=== PATIENT | female | born 2005 | race Caucasian/White ===

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

== ENCOUNTER 2024-02-27 00:37 | Emergency (ER) | payer OTHER, SELFPAY ==
[2024-02-27 00:39] VITALS: BP 104/68; PULSE 67; RESP 16; TEMP 36.7; O2SAT 100
--- NOTE | 2024-02-27 01:34 | PC.NURSE ---
Called pt in waiting room, pt not acknowledging this bond writer, Security then called pts name and patient states she isnt going to be seen. Registration made aware.
== END 2024-02-27 01:37 | disposition left against medical advice (07) ==
PROVIDERS: Emergency Provider Emergency Medicine
DX: R10.30 Lower abdominal pain, unspecified (principal); Z53.21 Procedure and treatment not carried out due to patient leaving prior to being seen by health care provider
CPT/HCPCS: 99281

== ENCOUNTER 2024-03-17 07:28 | Emergency (ER) | payer OTHER, SELFPAY ==
[2024-03-17 07:42] VITALS: BP 105/57; PULSE 60; RESP 16; TEMP 36.5; O2SAT 100; BMI 21.1
--- NOTE | 2024-03-17 11:41 | PC.NURSE ---
NA to name at 11:40.
--- OUTSIDE RECORDS SUMMARY | 2024-03-17 14:46 | XMS_ITS | Clinical Summary ---
Author Organization [facility] it Address [address] [place] [address] Care Team Providers Care Sewing Demonstrator Name Role Phone Tabitha Topete MD Primary Care Provider [phone] Allergies No known active allergies Medications Medication Sig Dispensed Refills Start Date End Date Status nystatin-triamcinolon e (MYCOLOG II) ointment Apply to affected area BID for up to 2 weeks 04/22/2023 Active Active Problems Problem Noted Date Diagnosed Date Exercise-induced asthma 02/12/2019 Dysmenorrhea 02/12/2019 Nonintractable headache 02/12/2019 Allergic rhinitis 01/29/2019 Overview (02/09/2024): 11/23/14 - loratadine Asthma 01/29/2019 Overview (02/09/2024): Diagnosed 12/21/2014. ProAir, Prednisone. Uses albuterol mostly when sick Learning problem 01/29/2019 Overview (02/09/2024): 10/05/15 OV note states - Language. Has IEP. No additional details available in transfer records Immunizations Name Administration Dates Next Due DTaP (Infanrix) 6wks to less than 7yo 10/10/2009 ,03/04/2006 [id number]-HBM-EFA (Pentacel) 2mo to less than 5yo 03/04/2006,04/08/2005,02/12/2005,12/13 PQyW-BnoO-SOU (Pediarix) 6 w ks to less than 7yo 04/08/2005,02/12/2005,2004 HPV 9-valent (Gardisil) 9yo to less than 46yo 02/12/2019,10/05/2015 Hepatitis B Pediatric (Enger ix B; Recombivax HB) to less than 20 yo 2004 IPV Inactivated polio (Ipol) 6wks and older 10/10/2009 Influenza trivalent, 0.5mL, preservative free (Fluarix; FluLaval; Fluzone) ages 6mo and older (Afluria) 3 years and older 02/12/2019 Influenza trivalent, with pr eservative (Fluzone; Afluria) 6mo and older 10/10/2009,03/04/2006,04/08/2005 MMR, measles mumps and rubel la Live (Priorix; M-M-R II) 12mo and older 01/10/2009 MMRV, measles mumps rubella and varicella live (Proquad) 4yo to less than 7yo 03/04/2006 Meningococcal MCV4P 10/05/2015 Pneumococcal Conjugate Vacci ne, 7 Valent 03/04/2006,04/08/2005,02/12/2005,12/13 Tdap Tetanus diptheria acell ular pertussis (Boostrix; Adacel) 7yo and older 10/05/2015 Varicella live (Varivax) 12m o and older 01/10/2009 Surgical History Surgery Date Site/Laterality Comments OTHER SURGICAL HISTORY PROCEDURE: DENIES PREVIOUS SURGERY Medical History Medical History Date Comments Allergic rhinitis 01/29/2019 DX:Allergic rh initis; COMMENT: 11/23/14 - loratadine Asthma 01/29/2019 DX:Asthma; COMME NT: Diagnosed 12/21/2014. ProAir, Prednisone. Uses albuterol mostly when sick Learning problem 01/29/2019 DX:Learning pro blem; COMMENT: 10/05/15 OV note states - Language. Has IEP. No additional details available in transfer records Family History Medical History Relation Name Comments Other: History of Lyme Disease Brother Breast cancer Mother's side Mat Great GMA Lymphoma Paternal Grandmother Relation Name Status Comments Brother Father Alive Mother Alive Mother's side Alive Paternal Grandmother Social History Tobacco Use Types Packs/Day Years Used Date Smoking Tobacco: Some Days Smokeless Tobacco: Never Alcohol Use Standard Drinks/Week Comments Not Currently 0 (1 standard drink = 0.6 oz pur e alcohol) Sex and Gender Information Value Date Recorded Sex Assigned at Not on file Gender Identity Not on file Sexual Orientation Not on file Obstetrics History Growth Chart Information Age Height Weight Bxwfmv-cnr-wqft th Percentile BMI Percentile Head Circum Head Circum Percentile Date 17 years 162.6 cm (5' 4 ) 54.2 kg (119 lb 6.4 oz) 37.52%* 2023 16 years 162.6 cm (5' 4 ) 49.9 kg (110 lb) 18.11%* 2022 16 years 49.1 kg (108 lb 3.2 oz) 2022 15 years 162 cm (5' 3.78 ) 55.6 kg (122 lb 9.6 oz) 54.71%* 2021 15 years 57.2 kg (126 lb) 2021 13 years 162 cm (5' 3.78 ) 57.1 kg (125 lb 12.8 oz) 73.75%* 2018 * [facility][NOTE 3] (Girls, 2-20 Years) Last Filed Vital Signs Vital Sign Reading Time Taken Comments Blood Pressure 123/78 04/17/2023 4:22 PM EST Pulse 78 08/22/2022 1:16 PM EDT Temperature - - Respiratory Rate - - Oxygen Saturation - - Inhaled Oxygen Concentration - - Weight 54.2 kg (119 lb 6.4 oz) 04/17/2023 4:22 P M EST Height 162.6 cm (5' 4 ) 04/17/2023 4:22 PM EST Body Mass Index 20.49 04/17/2023 4:22 PM EST Body Mass Index Percentile 37.52% 04/17/2023 4:2 2 PM EST Growth Chart: [facility][NOTE 3] (Girls, 2- 20 Years) Plan of Treatment Upcoming Encounters Date Type Department Care Team (Late st Contact Info) Description 07/27/2024 4:00 PM EDT Office Visit Adult Medicine [address] [phone] Tabitha Toepte MD [address] [place] [id number] Health Maintenance Due Date Last Done Comments Pneumococcal Vaccine: Pediatrics (0 to 5 Years) and At-Risk Patients (6 to 64 Years) (1 of 1 - PPSV23 or PCV20) 2010 03/04/2006, 04/08/2005, 02/12/2005, Additional history exists Annual Well Child Visit (3-21 years old) 01/22/2022 02/12/2019 Depression Screening 01/22/2022 HIV Screening 01/22/2022 Hepatitis C Screening 01/22/2022 Social Influencers of Health Screening 01/22/2022 COVID-19 Vaccine ( season) 2023 Influenza Vaccine (#1) 2023 , 10/10/2009, 03/04/2006, Additional history exists Gonorrhea/Chlamydia Screening 04/17/2024 04/17/2023 DTaP,Tdap,and Td Vaccines (7 - Td or Tdap) 10/04/2025 10/05/2015, 10/10/2009, 03/04/2006, Additional history exists Hepatitis B Vaccines Completed 04/08/2005, 02/12/2005, 2004, Additional history exists HIB Vaccines Completed 03/04/2006, 03/27, 02/12/2005, Additional history exists MMR Vaccines Completed 01/10/2009, 03/04/2006 Varicella Vaccines Completed 01/10/2009, 03/04/2006 IPV Vaccines Completed 10/10/2009, 10/2006, 04/08/2005, Additional history exists Meningococcal ACWY Vaccine Aged Out 10/05/2015 N o longer eligible based on patient's age to complete this topic HPV Vaccines Completed 02/12/2019, 10/05/2015 Hepatitis A Vaccines Aged Out No long er eligible based on patient's age to complete this topic RSV Immunization Patients Under 20 months Aged Out No longer eligible based on patient's age to complete this topic Procedures Procedure Name Priority Date/Time Associated Diagnosis Comments GONORRHEA/CHLAMYDIA SCRREENING Routine 04/17/2023 from Last 3 Months or Most Recently Relevant to Health Maintenance Results * Gonorrhea/Chlamydia Screening (04/17/2023) HM Gonorrhea/Chla mydia Screening abstracted Historical Provider MD EPIFANIO Hinson from Last 3 Months or Most Recently Relevant to Health Maintenance Care Teams Sewing Demonstrator Relationship Specialty Start Date End Date Tabitha Topete MD PCP - General 04/17/23
== END 2024-03-17 14:34 | disposition left against medical advice (07) ==
PROVIDERS: Emergency Provider Emergency Medicine
DX: R10.2 Pelvic and perineal pain (principal)
CPT/HCPCS: 99281

== ENCOUNTER 2024-03-18 23:29 | Emergency (ER) | payer OTHER, SELFPAY ==
[2024-03-18 23:37] VITALS: BP 112/55; PULSE 70; RESP 16; TEMP 36.8; O2SAT 97; BMI 21.4
[2024-03-19 00:29] LABS: Appearance Urine Cloudy; Color Urine Dark Yellow; Glucose Urine UA Negative (Negative); Leukocyte Esterase Urine Moderate (2+) (Negative); Nitrite Urine Negative (Negative); Specific Gravity - Urine >= 1.030 (1.005-1.025); UMIC TRIGGER UACC YES; Urine Blood Trace (Negative); Urine Ketones Trace mg/dL (Negative); Urine Protein 30 (1+) mg/dL (Neg-Trace)
[2024-03-19 00:34] LABS: Bacteria Urine Trace (None Seen); UACC Culture Trigger YES; WBC Urine >50 /HPF (0-5)
--- NOTE | 2024-03-19 01:52 | ED_ITS ---
HPI - Female Genitourinary General Chief complaint: Urogenital-Female Stated complaint: Vaginal pain Time Seen by Provider: 03/19/24 01:52 History of Present Illness ED Provider: Miguel AMIN Narrative: The patient is a 18-year-old female. She is . She believes she is about 4 months . Comes to the emergency room because she has had urinary symptoms for about a week. These symptoms include dysuria, urgency and frequency. Also for the last couple of days she has had a sense of some additional vaginal discomfort. Last sexual intercourse was 1-2 weeks ago with a new partner. No flank pain. No nausea or vomiting. No fevers. The patient says that she does not plan to keep the . She [facility]. The patient was seen in the emergency room here on December 19 for a variety of symptoms. At that time she had an ultrasound that showed an intrauterine at about 7 weeks and 1 day. Based on that calculation the patient is approximately 20 weeks currently. Related Data Home Medications ?Medication ?Instructions ?Recorded ?Confirmed methadone 10 mg/mL oral 65 mg PO DAILY 09/24/23 09/24/23 concentrate (Methadone Intensol) Previous Rx's ?Medication ?Instructions ?Recorded polyethylene glycol 3350 17 gram 17 g PO BID #30 ea 01/13/21 oral powder packet (Miralax) docusate sodium 100 mg capsule 100 mg PO BID PRN constipation #30 12/15/21 (Colace) caps famotidine 20 mg tablet (Pepcid) 20 mg PO DAILY PRN abdominal 12/15/21 discomfort #30 tabs ondansetron 4 mg disintegrating 4 mg PO Q8H PRN nausea and 12/15/21 tablet vomiting #20 tabs sennosides 8.6 mg tablet (senna) 8.6 mg PO BEDTIME PRN constipation 12/15/21 #30 tabs ondansetron 4 mg disintegrating 4 mg PO DAILY PRN nausea and 08/12/23 tablet vomiting 5 days #7 tabs ondansetron 4 mg disintegrating 4 mg PO Q8H PRN nausea and 09/24/23 tablet vomiting #6 tabs doxylamine 10 mg-pyridoxine (vit 1 tab PO BID PRN nausea and 12/08/23 B6) 10 mg tablet,delayed release vomiting #30 tabs (Diclegis) clotrimazole 2 % vaginal cream 1 appful vaginal BEDTIME 3 days 12/20/23 #21 grams ondansetron 4 mg disintegrating 4 mg PO Q6H PRN nausea and 12/20/23 tablet vomiting #15 tabs metronidazole 500 mg tablet 500 mg PO BID 7 days #14 tabs 12/24/23 azithromycin 250 mg tablet 250 mg PO DAILY 7 days #7 tabs 03/19/24 cefpodoxime 200 mg tablet 200 mg PO BID #12 tabs 03/19/24 metronidazole 500 mg tablet 500 mg PO BID #14 tabs 03/19/24 Allergies Allergy/AdvReac Type Severity Reaction Status Date / Time No Known Allergies Allergy Verified 03/18/24 23:40 [facility] Past Medical History Medical History Anxiety Constipation Social History Social History Unable to assess alcohol history related to: Unable to respond Alcohol intake: never Patient Tobacco Use Status: Never used Tobacco Smoked in Last 30 Days: No Use of substances other than those prescribed or required for medical reasons: No Substance Use Type: Crack/Cocaine and Heroin Advance Directives: No Do you have a plan to hurt others: No Plan Patient : No Physical Exam Vital Signs: Vital Signs: Last Vital Signs Temp 98.0 F 03/19/24 05:25 Pulse 68 03/19/24 05:25 Resp 16 03/19/24 05:25 BP 102/52 L 03/19/24 05:25 Pulse Ox 98 03/19/24 05:25 O2 Del Method Room Air 03/19/24 05:25 BMI result Body Mass Index 21.4 Const: Other: The patient is a 18-year-old female who is awake and alert. She does not appear obviously ill or in distress. HEENT: Other: Face is symmetrical. Mucous membranes moist. Eyes: General: appearance normal, both eyes and all related structures Neck: Neck: Yes full ROM Resp: Effort & Inspection: normal respiratory effort Auscultation: clear to auscultation bilaterally Cardio: Rate: regular rate Rhythm: regular rhythm Heart sounds: S1 normal heart sound present and S2 normal heart sound present GI: Other: He abdomen is soft and without significant tenderness. Uterine fundus is just below the umbilicus. : Other: No obvious lesions to the external genitalia. Introduction of the speculum revealed copious amount of whitish greenish vaginal discharge. The araya of the vaginal canal seemed friable and tenderand there was a friable appearance to the cervix as well. There was no cervical motion tenderness however. Skin: Other: skin is dry and unremarkable Neuro: Other: the patient is awake and alert with normal mental status. Cranial nerves are grossly intact. She moves her extremities normally and appropriately. She seems neurologically intact. Extrem: Other: No peripheral edema. No calf swelling or tenderness. Medications Administered Discontinued Medications Generic Name Dose Route Start Last Admin Trade Name Freq PRN Reason Stop Dose Admin Azithromycin 1,000 mg 03/19/24 03:21 03/19/24 04:08 Azithromycin 500 Mg Tablet PO 03/19/24 03:22 1,000 mg ONCE ONE Administration Cefuroxime Axetil 500 mg 03/19/24 04:34 03/19/24 04:42 Cefuroxime Axetil 500 Mg Tablet PO 03/19/24 04:35 500 mg ONCE ONE Administration Metronidazole 500 mg 03/19/24 03:26 03/19/24 04:08 Metronidazole 500 Mg Tablet PO 03/19/24 03:27 500 mg ONCE ONE Administration Medical Decision Making Medical Decision Making [facility] Narrative: Patient is a 18-year-old female who presents for evaluation of urinary symptoms and vaginal symptoms. She reported that she is approximately 4 months . She has a history of opioid use disorder and is on methadone. She reports that she does not plan to keep the . She says that she [facility] [place] but that she has not yet been seen. She says that she has an appointment next week. She reports that she has urinary symptoms including urgency, dysuria, and frequency. She also reports vaginal discharge. She has not had fevers. Clinically the patient does not appear toxic in any way. Her urinalysis is potentially consistent with UTI. With regard to her vaginal symptoms the patient was at 1st somewhat hesitant to have a vaginal exam. She was hopeful that a female provider might be available but there was no female provider working currently. I asked the patient's nurse did speak to the patient about possibly having a pelvic exam. Ultimately the patient agreed to have a pelvic exam. Her on the pelvic exam I did not appreciate any herpetic lesions in the external genitalia. Introduction of the speculum revealed a large volume of whitish yellowish vaginal discharge with a mild odor. There seemed to be friability of the araya of the vagina. I used large colpettes to clear out the vaginal discharge in order to visualize the cervix. The cervix appeared friable. I sent a swab for herpes culture swabbing the araya of the vaginal canal. The patient found this sample taking quite uncomfortable. Additionally swabs were taken for GC and chlamydia and a wet prep. I was somewhat surprised that on bimanual exam the patient did not seem to have any cervical motion tenderness. The patient clearly has some kind of a vaginitis. She may have UTI although her urine sample may have been falsely positive because of her vaginal discharge. Given that she had a has these symptoms after at contact with a new sexual partner in the last couple of weeks I thought it would be reasonable to cover her for GC and chlamydia as well as bacterial vaginitis. While she was in the department her Trichomonas panel came back positive for Trichomonas but negative for yeast. I had ordered a dose of IM ceftriaxone but the patient did not wish to have an injection. as an alternative I have prescribed cefpodoxime. There is evidence that a single 400 mg dose of cefpodoxime is effective in treating gonorrhea. Since I was planning on putting her on antibiotics for a possible urinary tract infection in any event she was prescribed cefpodoxime 200 mg b.i.d. with instructions to take her 1st dose as a double dose ( 400 mg). She was also started on azithromycin (an EKG was done since she is on methadone. Her QT interval was normal). Also metronidazole. I explained to the patient on my calculations based on her ultrasound from 12/20/2023 I think she is currently approximately 20 weeks . I strongly encouraged her to [facility]. I am also providing her with the information for a gynecological practice at this hospital. I believe she gets her primary care through [facility] and she is also advised to follow up there. Lab Data Labs: Lab Results 03/19/24 03/19/24 Range/Units 00:23 03:19 Urine Color Dark Yellow Urine Appearance Cloudy Urine pH 6.0 (5.0-9.0) Ur Specific [place] >= 1.030 H (1.005-1.025) Urine Protein 30 (1+) H (Neg-Trace) mg/dL Urine Glucose (UA) Negative (Negative) mg/dL Urine Ketones Trace (Negative) mg/dL Urine Blood Trace H (Negative) Urine Nitrite Negative (Negative) Ur Leukocyte Esterase Moderate (2+) H (Negative) Urine RBC 6-10 H (0-2) /HPF Urine WBC >50 H (0-5) /HPF Ur Squamous Epith Cells 3-5 (0-2) /HPF Urine Bacteria Trace (None Seen) Hyaline Casts 3-5 (0-2) /LPF Chlam trachomat DNA PCR NOT DETECTED (Not Detect.) N.gonorrhoeae DNA (PCR) NOT DETECTED (Not Detect.) T. vaginalis (PCR) DETECTED A (Not Detect) Bact vaginosis (PCR) NEGATIVE (Negative) C. krusei/glabrata (PCR) NOT DETECTED (Not Detect) Tiffany group (PCR) DETECTED A (Not Detect) Discharge Plan Discharge Clinical Impression: Urinary tract infection, Trichomonas vaginitis, 20 weeks gestation of Patient Disposition: Home, Self-Care Additional Instructions: You has been started on 3 different antibiotics. With regard to the cefpodoxime: Please take a double dose when you start this medication. Take 2 of the 200 mg tablets for the 1st dose. Do that later this morning when you bean picker the prescription. Then take 1 tablet in the evening and continue to take 1 tablet 2 times a day until done. Take the azithromycin once a day. Take the metronidazole 2 times a day. As far as I can tell I believe your has a advanced to about 20 weeks. Please do your best to [facility] as you [facility]. If for any reason you wish to be seen at our gynecological/obstetrical office you may contact the office with the information provided. Please also plan on following up with your regular doctor at [facility]. Return to the emergency room if significantly worse. Prescriptions: New cefpodoxime 200 mg tablet 200 mg PO BID Qty: 12 0RF Rx Instructions: must administer with a meal/food metronidazole 500 mg tablet 500 mg PO BID Qty: 14 0RF azithromycin 250 mg tablet 250 mg PO DAILY 7 Days Qty: 7 0RF Rx Instructions: start on day 2 of therapy No Action polyethylene glycol 3350 [Miralax] 17 gram powder in packet 17 g PO BID Qty: 30 0RF Rx Instructions: Use 17 g in a cup of water or juice every 15 minutes until you have passage of stool and have clear liquid passing per rectum sennosides [senna] 8.6 mg tablet 8.6 mg PO BEDTIME PRN (Reason: constipation) Qty: 30 0RF famotidine [Pepcid] 20 mg tablet 20 mg PO DAILY PRN (Reason: abdominal discomfort) Qty: 30 0RF docusate sodium [Colace] 100 mg capsule 100 mg PO BID PRN (Reason: constipation) Qty: 30 0RF ondansetron 4 mg tablet,disintegrating 4 mg PO Q8H PRN (Reason: nausea and vomiting) Qty: 20 0RF methadone [Methadone Intensol] 10 mg/mL Concentrate 65 mg PO DAILY ondansetron 4 mg tablet,disintegrating 4 mg PO Q8H PRN (Reason: nausea and vomiting) Qty: 6 0RF doxylamine-pyridoxine (vit B6) [Diclegis] 10-10 mg tablet,delayed release (DR/EC) 1 tab PO BID PRN (Reason: nausea and vomiting) Qty: 30 0RF ondansetron 4 mg tablet,disintegrating 4 mg PO DAILY PRN (Reason: nausea and vomiting) 5 Days Qty: 7 0RF ondansetron 4 mg tablet,disintegrating 4 mg PO Q6H PRN (Reason: nausea and vomiting) Qty: 15 0RF clotrimazole 2 % cream 1 appful vaginal BEDTIME 3 Days Qty: 21 0RF metronidazole 500 mg tablet 500 mg PO BID 7 Days Qty: 14 0RF Referrals: [facility] [place] [facility] [Provider Group] [facility] [Provider Group] [facility] [Outside] Interventions: ED Discharge Assessment Last Done: 03/19/24 05:25 Discharge Date/Time: 03/19/24 05:26 Print Language: Sinhala
[2024-03-19] MEDS: metroNIDAZOLE 500 MG TABLET PO (04:08)
[2024-03-19] MEDS: Azithromycin 500 MG TABLET 1000 MG PO (04:08)
[2024-03-19 04:10] VITALS: BP 102/52; PULSE 68; RESP 16; TEMP 36.7; O2SAT 98
[2024-03-19] MEDS: cefuroxime axetiL 500 MG TABLET PO (04:42)
--- NOTE | 2024-03-19 04:44 | ECG_ITS ---
Test Reason : ON METHADONE Blood Pressure : */* mmHG Vent. Rate : 68 BPM Atrial Rate : 68 BPM P-R Int : 134 ms QRS Dur : 88 ms QT Int : 396 ms P-R-T Axes : 46 68 32 degrees QTcB Int : 421 ms Normal sinus rhythm Normal ECG No previous ECGs available Referred By: Anurag Rivera Electronically Signed By: KRUPA GONZALEZ MD
[2024-03-19 05:25] VITALS: BP 102/52; PULSE 68; RESP 16; TEMP 36.7; O2SAT 98
[2024-03-19 13:39] LABS: Bacterial Vaginosis PCR NEGATIVE (Negative); Candida Group PCR DETECTED (Not Detect); Candida glab krusei PCR NOT DETECTED (Not Detect); Trichomonas vaginalis PCR DETECTED (Not Detect)
[2024-03-19 14:39] LABS: CT PCR NOT DETECTED (Not Detect.); NG PCR NOT DETECTED (Not Detect.)
== END 2024-03-19 05:26 | disposition home or self-care (01) ==
PROVIDERS: Emergency Provider Emergency Medicine
DX: O98.312 Other infections with a predominantly sexual mode of transmission complicating pregnancy, second trimester (principal); O99.322 Drug use complicating pregnancy, second trimester; R39.15 Urgency of urination; F11.90 Opioid use, unspecified, uncomplicated; R30.0 Dysuria; Z3A.20 20 weeks gestation of pregnancy; Z79.899 Other long term (current) drug therapy
CPT/HCPCS: 81001; 81515; 87086; 87255; 87491; 87591; 93005; 96372; 99284; 99285

== ENCOUNTER → 2024-03-19 04:44 | Outpatient (BNV) | payer OTHER, SELFPAY | PROVIDERS: Emergency Provider Emergency Medicine; Visit Provider Internal Medicine Cardiovascular Disease | DX: T40.3X4A Poisoning by methadone, undetermined, initial encounter (principal) | CPT/HCPCS: 93010 ==

== ENCOUNTER 2024-05-04 11:44 | Inpatient (IN) | payer OTHER, SELFPAY ==
[2024-05-04] VITALS (9 sets, daily range): BP systolic 105–142; BP diastolic 53–84; PULSE 65–111; RESP 14–18; TEMP 37–38.5; O2SAT 97–100; BMI 23.2
--- NOTE | ~2024-05-04 | CT_ITS ---
CLINICAL HISTORY: concern for endometritis, [address] abdomen and pelvis with contrast Comparison: None Findings: The lung bases are clear. Unremarkable gallbladder. No biliary ductal dilatation. The liver is unremarkable. The spleen is mildly enlarged and otherwise within normal limits. Pancreas, adrenal glands and kidneys are unremarkable. No ureteral stones and no hydronephrosis or hydroureter. No bowel obstruction, pneumoperitoneum, or pneumatosis. Appendix not identified. Moderate pancolonic stool. IUD in the uterus. No endometrial thickening. Uterus slightly deviated to the right. Minimal pelvic free fluid nonspecific. Mild fluid in the vagina. Bilateral small inguinal lymph nodes nonspecific and could be reactive. Abdominal aorta normal in size. No acute fracture. IMPRESSION: 1. IUD in the uterine canal. No endometrial thickening. 2. Slight pelvic free fluid and mild fluid in the vagina. 3. Moderate pancolonic stool, correlate with constipation. This document has been electronically signed by: Hayley Gillis MD on 05/04/2024 18:55:45
--- NOTE | 2024-05-04 12:18 | ED_ITS ---
HPI - General Adult General Chief complaint: Abdominal Pain Stated complaint: Abd pain, sores on mouth Time Seen by Provider: 05/04/24 16:37 Source: patient, family (mother), RN notes reviewed and old records reviewed Mode of arrival: ambulatory Limitations: no limitations History of Present Illness ED Provider: Nasreen AMIN narrative: Patient is a 18-year-old female with history of opioid use disorder on methadone presenting to the emergency department with complaint of fevers, lower abdominal pain, as well as sore throat, oral lesions, and vaginal lesions as well as abnormal vaginal discharge for the past 3 days. Reports termination of 5 weeks ago at [facility], was 5 months gestation at that time. Recent unprotected intercourse with new partner. Denies nausea, vomiting, diarrhea. Patient was seen in this ED on 03/19/24 and tested positive for trichomonas, was also empirically treated for gonorrhea and chlamydia. MD complaint: fever, abdominal pain Onset (ago): day(s) Location: abdomen and genitals Associated symptoms: fever/chills Treatments prior to arrival: none Related Data Home Medications ?Medication ?Instructions ?Recorded ?Confirmed methadone 10 mg/mL oral 65 mg PO DAILY 09/24/23 09/24/23 concentrate (Methadone Intensol) Previous Rx's ?Medication ?Instructions ?Recorded polyethylene glycol 3350 17 gram 17 g PO BID #30 ea 01/13/21 oral powder packet (Miralax) docusate sodium 100 mg capsule 100 mg PO BID PRN constipation #30 12/15/21 (Colace) caps famotidine 20 mg tablet (Pepcid) 20 mg PO DAILY PRN abdominal 12/15/21 discomfort #30 tabs ondansetron 4 mg disintegrating 4 mg PO Q8H PRN nausea and 12/15/21 tablet vomiting #20 tabs sennosides 8.6 mg tablet (senna) 8.6 mg PO BEDTIME PRN constipation 12/15/21 #30 tabs ondansetron 4 mg disintegrating 4 mg PO DAILY PRN nausea and 08/12/23 tablet vomiting 5 days #7 tabs ondansetron 4 mg disintegrating 4 mg PO Q8H PRN nausea and 09/24/23 tablet vomiting #6 tabs doxylamine 10 mg-pyridoxine (vit 1 tab PO BID PRN nausea and 12/08/23 B6) 10 mg tablet,delayed release vomiting #30 tabs (Diclegis) clotrimazole 2 % vaginal cream 1 appful vaginal BEDTIME 3 days 12/20/23 #21 grams ondansetron 4 mg disintegrating 4 mg PO Q6H PRN nausea and 12/20/23 tablet vomiting #15 tabs metronidazole 500 mg tablet 500 mg PO BID 7 days #14 tabs 12/24/23 azithromycin 250 mg tablet 250 mg PO DAILY 7 days #7 tabs 03/19/24 cefpodoxime 200 mg tablet 200 mg PO BID #12 tabs 03/19/24 metronidazole 500 mg tablet 500 mg PO BID #14 tabs 03/19/24 fluconazole 150 mg tablet 150 mg PO Q3D 2 doses #2 tabs 03/22/24 Allergies Allergy/AdvReac Type Severity Reaction Status Date / Time No Known Allergies Allergy Verified 05/04/24 12:21 Review of Systems 2 Review of Systems: As per HPI Yes all other systems are reviewed and are negative Constitutional: Constitutional: Reports as per HPI PMFSH Past Medical History Medical History Anxiety Constipation Social History Social History Unable to assess alcohol history related to: Unable to respond Alcohol intake: never Patient Tobacco Use Status: Never used Tobacco Smoked in Last 30 Days: No Substance Use Type: Crack/Cocaine and Heroin Advance Directives: No Advance Directives Information Provided: No Patient : No Physical Exam ED Vital Signs: Vital Signs - 24 hr 05/04/24 12:17 05/04/24 17:31 05/04/24 17:49 Temperature 100.2 F 101.3 F H Pulse Rate 110 H 111 H Respiratory Rate 18 16 18 Blood Pressure 142/84 H 131/67 Pulse Oximetry 99 97 Oxygen Delivery Method Room Air Room Air BMI result Body Mass Index 23.2 Vital signs have been reviewed and appear to be correct. Blood pressure normal. Heart rate tachycardic. Respiratory rate normal. Temperature febrile. Oxygen saturation normal. Const General: no acute distress, alert, awake, anxious and poor hygiene Nutritional Appearance: average body habitus Orientation/consciousness: oriented to person, oriented to place, oriented to time and patient oriented x3 Limitations: no limitations HENMT Head: Yes normocephalic and Yes atraumatic Ears: external ears normal General nose exam: Normal external nose present Face and sinus: Yes face symmetric Mouth: oropharynx normal, moist mucous membranes and lip abnormal diffuse lesion Throat: Yes uvula midline Eyes Pupils: Equal, round and reactive pupils present Neck Neck: Yes normal visual inspection and Yes supple Lymphatic: lymphadenopathy bilateral anterior cervical Resp Effort & Inspection: normal respiratory effort and able to speak in complete sentences Auscultation: clear to auscultation bilaterally Cardio Rate: regular rate Rhythm: regular rhythm Heart sounds: S1 normal heart sound present and S2 normal heart sound present GI Palpation (GI): Soft to palpation and nontender Auscultation: normoactive bowel sounds Other: Pelvic exam chaperoned by BILLY Ramirez General: Yes no CVA tenderness External Female Exam: lesion Speculum Exam - Cervix: palpation abnormal (tenderness to palpation), Abnormal cervical discharge present yellow, Cervical tenderness present and Other cervical findings present (cervix friable) Bimanual exam- vagina & uterus: No normal palpation (tenderness to palpation), Cervical tenderness present and cervical motion tenderness Female genitals images: 2 1. lesion Back/Spine/Pelvis Back: no CVA tenderness Skin General skin exam: elasticity normal and turgor normal Neuro General: oriented to person, oriented to place, oriented to time, patient oriented x3, moves all extremities, no focal motor deficits and CN's II-XI intact bilaterally Cranial nerves: Yes Equal, round and reactive pupils present Cognition (Neuro): normal cognition Extrem General: Yes full ROM, Yes no pedal edema and Yes no calf tenderness Psych Mental Status: mental status grossly normal Affect: normal affect Thought process: Normal thought process present Course Course Course Narrative: RME, this is a rapid medical exam performed by Martin Campa please refer to primary provider for complete H&P- 18 year old female presents for evaluation of lower abdominal pain and sores down there. Plan for labs, testing. Direct visualization not performed in triage Reevaluation(s) Reevaluation #1: Lex Luke PA-C have accepted care of the patient and signed out pending admission CT abdomen and pelvis:IMPRESSION: 1. IUD in the uterine canal. No endometrial thickening. 2. Slight pelvic free fluid and mild fluid in the vagina. 3. Moderate pancolonic stool, correlate with constipation. This document has been electronically signed by: Hayley Gillis MD on 05/04/2024 18:55:45 An attempt was made to admit to the hospitalist, they declined given we do not have diagnostic technologist coverage, we will reach out to [facility] Reevaluation #2: [facility] is closed to transfer, in speaking with the Gynecology Service, Dr. Yuen, they feel if they were able to accept the patient, there would be no additional intervention beyond treating her with the appropriate antibiotics, clearing her fever, until she is able to tolerate oral intake. There would be no actual physical intervention for PID given the absence of a TOA. will page our hospitalist again Time: 19:45 Medications Administered Discontinued Medications Generic Name Dose Route Start Last Admin Trade Name Freq PRN Reason Stop Dose Admin Acetaminophen 650 mg 05/04/24 17:48 05/04/24 18:02 Acetaminophen 325 Mg Tablet PO 05/04/24 17:49 650 mg ONCE ONE Administration Ceftriaxone Sodium 1 gm 05/04/24 17:48 05/04/24 18:02 Ceftriaxone Sodium 1 Gm Vial IVPUSH 05/04/24 17:49 1 gm ONCE ONE Administration Doxycycline Hyclate 100 mg/ 250 mls @ 166.67 mls/hr 05/04/24 17:48 05/04/24 18:57 Sodium Chloride IV 05/04/24 19:17 166.67 mls/hr ONCE ONE Administration Sodium Chloride 1,000 mls @ 999 mls/hr 05/04/24 18:00 05/04/24 18:10 Ns IV 05/04/24 19:00 999 mls/hr .Q1H1M OLVIN Administration Iohexol 100 ml 05/04/24 18:20 05/04/24 18:21 Iohexol 350 Mg/Ml 100 Ml Infus..Btl IV 05/04/24 18:21 85 ml ONCE ONE Administration Medical Decision Making Medical Decision Making MDM Narrative: Patient is a 18-year-old female with history of opioid use disorder on methadone presenting to the emergency department with complaint of fevers, lower abdominal pain, as well as sore throat, oral lesions, and vaginal lesions as well as abnormal vaginal discharge for the past 3 days. On exam patient is awake, A+Ox3, tachycardic, became febrile while in the ED, normal neurological exam without focal deficits, physical exam findings as above. Given reported symptoms and physical exam findings, initial differential includes but is not limited to STI, PID, endometritis, retained products of conception, sepsis. Labs notable for no leukocytosis or left shift, no evidence of PITER, no significant electrolyte abnormalities. Patient met sepsis criteria at 17:49 with fever and tachycardia, IV abx ordered as well as IV fluids, blood cultures, lactic. CT A/P shows no endometrial thickening, slight pelvic free fluid, mild fluid in vagina, constipation. Case discussed with Dr. Mcclain who recommends transfer, as no SCIENT[facility] RECRUITER coverage is available today or tomorrow. Patient signed out to [facility] pending transfer. Differential Diagnosis Differential Diagnoses: The differential diagnosis associated with the presentation includes as per [facility] Admission/Observation Consideration of admission/observation: Escalation of care including admission/observation considered Consult Healthcare Provider Management of the patient was discussed with: Hospitalist Lab Data [facility] Lab Attestation statement: I reviewed the patient's lab results. as per [facility] 05/04/24 13:35 05/04/24 13:35 Labs: Lab Results 05/04/24 05/04/24 Range/Units 13:35 18:15 WBC 5.8 (4.8-10.8) X10*3/uL RBC 4.69 (4.20-5.50) X10*6/uL Hgb 13.4 (12.0-16.0) g/dl Hct 40.1 (37.0-47.0) % MCV 85.5 (80.0-98.0) fL MCH 28.6 (27.0-33.0) pg MCHC 33.4 (31.0-35.0) g/dl RDW 11.8 (11.0-16.0) % Plt Count 116 L D (160-400) X10*3/uL MPV 11.1 (9.4-12.3) fL Immature Gran % (Auto) 0.3 (0.0-0.4) % Neut % (Auto) 69.8 (45-73) % Lymph % (Auto) 22.6 (20-40) % [place] % (Auto) 7.0 (2-11) % Eos % (Auto) 0.0 (0-4) % Baso % (Auto) 0.3 (0-2) % Lymph # (Auto) 1.3 (1.2-4.9) X10*3/uL [place] # (Auto) 0.4 (0.1-1.2) X10*3/uL Eos # (Auto) 0.0 (0.0-0.4) X10*3/uL Baso # (Auto) 0.0 (0.0-0.2) X10*3/uL Abs Immat Gran (auto) 0.02 (0.00-0.03) X10*3/uL Absolute Neuts (auto) 4.1 (2.0-8.3) x10*3/uL Absolute Nucleated RBC 0.000 (0.0-0.012) X10*3/uL Nucleated RBC % (auto) 0.0 (0.0-0.2) /100WBC Smear Tech's Comments VERIFIED Sodium 133 L (135-145) mmol/L Potassium 4.1 (3.3-5.1) mmol/L Chloride 102 (96-108) mmol/L Carbon Dioxide 23 (22-29) mmol/L Anion Gap 12 (12-20) BUN 10 (9-16) mg/dL Creatinine 0.93 (0.5-1.4) mg/dL Estim Creat Clear Calc 84.0 Estimated GFR > 60 Random Glucose 95 (60-115) mg/dL Lactic Acid 0.9 (0.5-2.0) mmol/L Calcium 8.9 D (8.4-10.2) mg/dL Total Bilirubin 0.7 (0.0-1.0) mg/dL AST 30 (5-31) U/L ALT 17 (0-31) U/L Alkaline Phosphatase 75 (39-117) U/L Total Protein 8.1 H (6.5-8.0) g/dL Albumin 4.1 (3.5-5.0) g/dL Lipase 9 (8-78) U/L Beta HCG, Quant < 2 mIU/mL Urine Color Dark Yellow Urine Appearance Clear Urine pH 6.0 (5.0-9.0) Ur Specific [place] >= 1.030 H (1.005-1.025) Urine Protein 100 (2+) H (Neg-Trace) mg/dL Urine Glucose (UA) Negative (Negative) mg/dL Urine Ketones Trace (Negative) mg/dL Urine Blood Trace H (Negative) Urine Nitrite Negative (Negative) Ur Leukocyte Esterase Small (1+) H (Negative) Urine RBC 6-10 H (0-2) /HPF Urine WBC 21-50 H (0-5) /HPF Ur Squamous Epith Cells 3-5 (0-2) /HPF Urine Bacteria None Seen (None Seen) Hyaline Casts 0-2 (0-2) /LPF Chlam trachomat DNA PCR NOT DETECTED (Not Detect.) N.gonorrhoeae DNA (PCR) NOT DETECTED (Not Detect.) S. pyogenes GrpA JERROD Negative (Negative) Independent Historian Clinical information obtained from an independent historian. History obtained from or confirmed by: Parent External Record Review External record reviewed: Inpatient record, Office record and Outpatient record Prescription Management I considered prescription management with: Antibiotic Discharge Plan Discharge Clinical Impression: Acute pelvic inflammatory disease, Sepsis Patient Disposition: Still a Patient Prescriptions: No Action polyethylene glycol 3350 [Miralax] 17 gram powder in packet 17 g PO BID Qty: 30 0RF Rx Instructions: Use 17 g in a cup of water or juice every 15 minutes until you have passage of stool and have clear liquid passing per rectum sennosides [senna] 8.6 mg tablet 8.6 mg PO BEDTIME PRN (Reason: constipation) Qty: 30 0RF famotidine [Pepcid] 20 mg tablet 20 mg PO DAILY PRN (Reason: abdominal discomfort) Qty: 30 0RF docusate sodium [Colace] 100 mg capsule 100 mg PO BID PRN (Reason: constipation) Qty: 30 0RF ondansetron 4 mg tablet,disintegrating 4 mg PO Q8H PRN (Reason: nausea and vomiting) Qty: 20 0RF methadone [Methadone Intensol] 10 mg/mL Concentrate 65 mg PO DAILY ondansetron 4 mg tablet,disintegrating 4 mg PO Q8H PRN (Reason: nausea and vomiting) Qty: 6 0RF doxylamine-pyridoxine (vit B6) [Diclegis] 10-10 mg tablet,delayed release (DR/EC) 1 tab PO BID PRN (Reason: nausea and vomiting) Qty: 30 0RF cefpodoxime 200 mg tablet 200 mg PO BID Qty: 12 0RF Rx Instructions: must administer with a meal/food metronidazole 500 mg tablet 500 mg PO BID Qty: 14 0RF azithromycin 250 mg tablet 250 mg PO DAILY 7 Days Qty: 7 0RF Rx Instructions: start on day 2 of therapy fluconazole 150 mg tablet 150 mg PO Q3D Qty: 2 0RF ondansetron 4 mg tablet,disintegrating 4 mg PO DAILY PRN (Reason: nausea and vomiting) 5 Days Qty: 7 0RF ondansetron 4 mg tablet,disintegrating 4 mg PO Q6H PRN (Reason: nausea and vomiting) Qty: 15 0RF clotrimazole 2 % cream 1 appful vaginal BEDTIME 3 Days Qty: 21 0RF metronidazole 500 mg tablet 500 mg PO BID 7 Days Qty: 14 0RF Print Language: Peruvian
[2024-05-04 13:47] LABS: Appearance Urine Clear; Color Urine Dark Yellow; Glucose Urine UA Negative (Negative); Leukocyte Esterase Urine Small (1+) (Negative); Nitrite Urine Negative (Negative); Specific Gravity - Urine >= 1.030 (1.005-1.025); UMIC TRIGGER UACC YES; Urine Blood Trace (Negative); Urine Ketones Trace mg/dL (Negative); Urine Protein 100 (2+) mg/dL (Neg-Trace)
[2024-05-04 13:49] LABS: Bacteria Urine None Seen (None Seen); Hyaline Casts Urine 0-2 /LPF (0-2); UACC Culture Trigger YES; WBC Urine 21-50 /HPF (0-5)
[2024-05-04 13:54] LABS: Basophils Percent Auto 0.3 % (0-2); Hematocrit 40.1 % (37.0-47.0); Hemoglobin 13.4 g/dl (12.0-16.0); Imm Gran Abs Auto 0.02 X10*3/uL (0.00-0.03); Imm Gran Pct Auto 0.3 % (0.0-0.4); Lymphocytes Absolute Auto 1.3 X10*3/uL (1.2-4.9); Lymphocytes Percent Auto 22.6 % (20-40); Mean Corpuscular HGB Conc 33.4 g/dl (31.0-35.0); Mean Corpuscular Hemoglobin 28.6 pg (27.0-33.0); Mean Corpuscular Volume 85.5 fL (80.0-98.0); Monocytes Absolute Auto 0.4 X10*3/uL (0.1-1.2); Neutrophils Absolute Auto 4.1 x10*3/uL (2.0-8.3); Neutrophils Percent Auto 69.8 % (45-73); Red Blood Count 4.69 X10*6/uL (4.20-5.50); Red Cell Distribution Width 11.8 % (11.0-16.0); White Blood Count 5.8 X10*3/uL (4.8-10.8)
[2024-05-04 14:07] LABS: Alanine Aminotransferase 17 U/L (0-31); Albumin Level 4.1 g/dL (3.5-5.0); Alkaline Phosphatase 75 U/L (39-117); Anion Gap 12 (12-20); Aspartate Amino Transferase 30 U/L (5-31); Bilirubin Total 0.7 mg/dL (0.0-1.0); Blood Urea Nitrogen 10 mg/dL (9-16); Calcium 8.9 mg/dL (8.4-10.2); Carbon Dioxide 23 mmol/L (22-29); Chloride 102 mmol/L (96-108); Estimated Glomerular Filt Rate > 60; Glucose Random 95 mg/dL (60-115); HCG Quantitative < 2 mIU/mL; Lipase 9 U/L (8-78); Potassium 4.1 mmol/L (3.3-5.1); Sodium 133 mmol/L (135-145); Total Protein 8.1 g/dL (6.5-8.0)
[2024-05-04 14:12] LABS: MANUAL DIFF FLAG SCAN; Mean Platelet Volume 11.1 fL (9.4-12.3); Platelet Count 116 X10*3/uL (160-400)
[2024-05-04 14:13] LABS: SLIDE REVIEW VERIFIED
[2024-05-04 14:19] LABS: IDNOW Serial# 58CA691E; Strep A Nucleic Acid Negative (Negative)
[2024-05-04 16:41] LABS: CT PCR NOT DETECTED (Not Detect.); NG PCR NOT DETECTED (Not Detect.)
[2024-05-04] MEDS: cefTRIAXone sodium 1 GM VIAL IVPUSH (18:02)
[2024-05-04] MEDS: Acetaminophen 325 MG TABLET 650 MG PO (18:02)
[2024-05-04] MEDS: 0.9 % Sodium Chloride 1,000 ML 999 ML IV (18:10)
[2024-05-04] MEDS: iohexoL 350 MG/ML 100 ML INFUS..BTL IV (18:21)
[2024-05-04 18:41] LABS: Lactic Acid 0.9 mmol/L (0.5-2.0)
[2024-05-04] MEDS: Doxycycline Hyclate 100 MG in 0.9 % Sodium Chloride 250 ML 166.67 MG IV (18:57)
--- NOTE | 2024-05-04 19:25 | PC.NURSE ---
Delay of fluids due to being paused, pt in CT SCAN.
--- OUTSIDE RECORDS SUMMARY | 2024-05-04 19:27 | XMS_ITS | Clinical Summary ---
Author Organization [facility] it Address [address] [place] [address] Care Team Providers Care Java Engineer Name Role Phone Tabitha Topete MD Primary Care Provider [phone] Allergies No known active allergies Medications nystatin-triamc inolone (MYCOLOG II) ointment Apply to affected area [...] 6wks to less than 7yo 10/10/2009 ,03/04/2006 [id number] (Pentacel) 2mo to less than 5yo 03/04/2006,04/08/2005,02/12/2005,12/13 [id number] (Pediarix) 6 w ks to less than [...] drink = 0.6 oz pur e alcohol) Comments Unknown Sex and Gender Information Value Date Recorded Sex Assigned at Not on file Legal Sex Female 1:16 PM EST Gender Identity Not on file Sexual Orientation Not on file Obstetrics History Growth Chart Information Age Height Weight Actezc-kfd-totw th Percentile BMI Percentile Head Circum Head [...] (125 lb 12.8 oz) 73.75%* 2018 * [facility] (Girls, 2-20 Years) Last Filed Vital Signs [...] 04/17/2023 4:2 2 PM EST Growth Chart: [facility] (Girls, 2- 20 Years) Plan of Treatment Upcoming Encounters Date Type Department Care Team (Late st Contact Info) Description 07/27/2024 4:00 PM EDT Office Visit Adult Medicine [address] [id number] Tabitha Topete MD [address] [place] [id number] Health Maintenance Due Date Last Done Comments Pneumococcal Vaccine: Pediatrics (0 to 5 Years) and At-Risk Patients (6 to 64 Years) (1 of 1 - PPSV23) 2010 03/04/2006, 04/08/2005, 02/12/2005, Additional history exists Meningococcal B Vacine (1 of 2 - Standard) 2020 Annual Well Child Visit (3-21 years old) 01/22/2022 02/12/2019 Depression Screening 01/22/2022 HIV Screening 01/22/2022 Hepatitis C Screening 01/22/2022 Social Influencers of Health Screening 01/22/2022 COVID-19 Vaccine ( season) 2023 Influenza Vaccine (#1) 2023 9, 10/10/2009, 03/04/2006, Additional history exists Gonorrhea/Chlamydia Screening [...] Procedure Name Priority Date/Time Associated Diagnosis Comments HM GONORRHEA/CHLAMYDIA SCRREENING Routine 04/17/2023 from Last 3 Months or Most Recently Relevant to Health Maintenance Results * Gonorrhea/Chlamydia Screening (04/17/2023) Gonorrhea/Chla mydia Screening abstracted Historical Provider MD HEALTH MAINTENANCE Final Result from Last 3 Months or Most Recently Relevant to Health Maintenance Care Teams Java Engineer Relationship Specialty Start Date End Date Tabitha Topete MD PCP - General 04/17/23
--- NOTE | 2024-05-04 20:49 | MHC.EDTECH ---
Per provider Quin to hold HIV lab draw until morning labs ,RN aware
[2024-05-04] MEDS: metroNIDAZOLE/NS 500 MG/100 ML PIGGYBACK 100 MG IV (20:55)
--- NOTE | 2024-05-04 21:43 | P.HPHOSP_ITS ---
History of Present Illness Date of Service: 05/04/24 Attending physician on admission: Michel Mcclain Chief Complaint: lower abd pain, vaginal discharge Patient is a 18-year-old female with a past medical history significant for recent [facility], and recent treatment for Trichomonas on 03/19/2024, who presented to the ED due to lower abdominal pain, sore throat, oral lesions, vaginal lesions, and vaginal discharge for the past 3 days. She reports discharge is thin and green/yellow. She did have improvement with the treatment back in February for Trichomonas and reports that this is a new recurrence. She reports a new sexual partner and unprotected intercourse recently. She does have some dysuria but denies any hematuria. Review of Systems 2 Constitutional: Constitutional: Denies body ache(s), Denies chills, Denies fatigue and Reports fever(s) Eyes: Eyes: Denies change in vision and Denies photophobia ENT: Denies nasal congestion, Denies nasal discharge and Reports sore throat Cardiovascular: Cardiovascular: Denies chest pain, Reports rapid heart rate, Denies leg edema, Denies lightheadedness and Denies dyspnea Respiratory: Respiratory: Denies chest congestion, Denies cough, Denies dyspnea and Denies wheezing Gastrointestinal: Gastrointestinal: Denies diarrhea, Denies nausea and Denies vomiting Genitourinary: Genitourinary: Reports dysuria and Reports vaginal discharge Musculoskeletal: Musculoskeletal: Denies myalgias Integumentary/Breasts: Skin/Breast: Reports lesions Neurologic: Denies confusion Psychiatric: Psychiatric: Denies confusion Endocrine: Endocrine: Denies fatigue Hematologic/Lymphatic: Hematologic/Lymphatic: Denies easy bleeding and Denies easy bruising Allergic/Immunologic: Allergic/Immunologic: Denies wheezing [facility] Medical History (Updated 05/04/24 @ 21:51 by Dary Darnell PA-C) Substance use disorder History of trichomonal vaginitis Anxiety Constipation Functional capacity: independent ambulation Social History Unable to assess alcohol history related to: Unable to respond Alcohol intake: never Patient Tobacco Use Status: Never used Tobacco Smoked in Last 30 Days: No Substance Use Type: Crack/Cocaine and Heroin Advance Directives: No Advance Directives Information Provided: No Patient : No Narrative: no smoking, etoh or drug use Meds Allergies Allergy/AdvReac Type Severity Reaction Status Date / Time No Known Allergies Allergy Verified 05/04/24 12:21 Home Medications ?Medication ?Instructions ?Recorded ?Confirmed ?Last Taken ?Type methadone 10 mg/mL oral 65 mg PO DAILY 09/24/23 09/24/23 09/23/23 09:04 History concentrate (Methadone Intensol) Physical Exam 2 Vital Signs and Narrative: Vital Signs: Last Vital Signs Temp 98.8 F 05/04/24 21:14 Pulse 67 05/04/24 21:14 Resp 16 05/04/24 21:14 BP 112/59 L 05/04/24 21:14 Pulse Ox 100 05/04/24 21:14 O2 Del Method Room Air 05/04/24 21:14 BMI result Body Mass Index 23.2 General: AOx3, no acute distress. 2 visitors bedside, did not want them to leave to discuss admission. Resp: CTA bilaterally CVS: RRR, no murmur GI: +BS, tender lower abd, no distention Skin: Warm, dry Neuro: Cranial nerves II-XII grossly intact bilaterally. Motor grossly intact bilaterally Extremities: No LE edema Psych: Appropriate affect Const: General: No confusion Orientation/consciousness: No confusion Eyes: Direct Ophthalmoscopy: No photophobia Neuro: General: No confusion Results Labs 05/04/24 13:35 05/04/24 13:35 Labs: Laboratory Results - last 24 hr 05/04/24 05/04/24 13:35 18:15 MCV 85.5 MCH 28.6 MCHC 33.4 RDW 11.8 Plt Count 116 L D MPV 11.1 Immature Gran % (Auto) 0.3 Neut % (Auto) 69.8 Lymph % (Auto) 22.6 [place] % (Auto) 7.0 Eos % (Auto) 0.0 Baso % (Auto) 0.3 Lymph # (Auto) 1.3 [place] # (Auto) 0.4 Eos # (Auto) 0.0 Baso # (Auto) 0.0 Abs Immat Gran (auto) 0.02 Absolute Neuts (auto) 4.1 Absolute Nucleated RBC 0.000 Nucleated RBC % (auto) 0.0 Smear Tech's Comments VERIFIED Anion Gap 12 Estim Creat Clear Calc 84.0 Estimated GFR > 60 Random Glucose 95 Lactic Acid 0.9 Calcium 8.9 D Total Bilirubin 0.7 AST 30 ALT 17 Alkaline Phosphatase 75 Total Protein 8.1 H Albumin 4.1 Lipase 9 Beta HCG, Quant < 2 Urine Color Dark Yellow Urine Appearance Clear Urine pH 6.0 Ur Specific [place] >= 1.030 H Urine Protein 100 (2+) H Urine Glucose (UA) Negative Urine Ketones Trace Urine Blood Trace H Urine Nitrite Negative Ur Leukocyte Esterase Small (1+) H Urine RBC 6-10 H Urine WBC 21-50 H Ur Squamous Epith Cells 3-5 Urine Bacteria None Seen Hyaline Casts 0-2 Chlam trachomat DNA PCR NOT DETECTED N.gonorrhoeae DNA (PCR) NOT DETECTED S. pyogenes GrpA JERROD Negative Assessment and Plan (1) Sepsis: Status: Acute (2) Acute pelvic inflammatory disease: Status: Acute Plan Patient is a 18-year-old female with a past medical history significant for recent [facility], and recent treatment for Trichomonas on 03/19/2024, who presented to the ED due to lower abdominal pain, sore throat, oral lesions, vaginal lesions, and vaginal discharge for the past 3 days. Pt foudn to have sepsis, PID, case discussed with ED provider [facility] consultation as there is no coverage here for the next 2 days, they are closed to transfer and suggested not needed. continue IV abx until improvement of fever. sepsis secondary to acute PID - WBC normal, tachy and temp of 101.3, lactic acid normal, blood cultures x2 pending, not severe sepsis - A/P CT with IUD in the uterine canal, no endometrial he will thickening, slight pelvic free fluid and mild fluid in the vagina. Moderate pancolonic stool. - UA mildly positive, culture pending - beta HCG negative - STI testing pending, negative for gonorrhea and chlamydia - RPR and HSV pending - cervical motion tenderness positive on exam by ED provider - started on ceftriaxone, doxycycline and Flagyl, continue all - monitor CBC and BMP Substance use disorder - continue methadone, we will need dose confirmed by pharmacy Full code VTE prophylaxis: Lovenox Patient with sepsis secondary to acute PID, requiring admission for least 2 midnights stay for IV antibiotics and monitoring. Quality Stroke Does the patient have a stroke diagnosis?: No VTE Prior VTE?: No VTE Risk Level:: Medical - moderate - high VTE Device Contraindication: Treatment Not Indicated VTE Drug Contraindication: N/A - Med Ordered
--- NOTE | 2024-05-04 22:23 | PC.NURSE ---
Pt a&ox4, no signs of distress. This RN attempted to medicate pt with the lovenox. Pt refused medication. Pt also refusing to speak with this RN. Plan of care ongoing.
--- NOTE | 2024-05-04 22:35 | PHA.MEDREC ---
Addendum entered by Luis Felipe Woodall RPh 05/04/24 22:56: Med rec was reviewed by [facility]. Original Note: Pharmacy Consult ? Medication Reconciliation Pharmacy has completed the medication reconciliation. Spoke with patient and patient family at bedside. Patient family confirmed the patient is only taking Methadone and nothing else at this time, the patient confirmed she is taking 115mg daily and last took it yesterday.
--- NOTE | 2024-05-04 22:47 | MHC.EDTECH ---
Patient refused to change into hospital attire, RN aware belongings list completed
[2024-05-04] MEDS: 0.9 % Sodium Chloride Flush 3 ML SYRINGE IVFLUSH (23:59)
--- NOTE | 2024-05-05 00:03 | PC.NURSE ---
Pt medicated per apr Pt ambulates to the restroom with a steady gait. Plan of care ongoing.
--- NOTE | 2024-05-05 01:31 | PM.EVENT ---
Event Note Date of Service: 05/05/24 Event Note: Per nursing pt was nodding off for unknown reason, so they asked to search her belongings. pt has a hx of ARLEEN and they were concerned for substance use in the hospital. she refused to allow them to search her belongings, and insisted she was leaving. I spoke with pt, who was not confused and was able to make sound medical decisions, and explained again the importance for her continued admission with sepsis and PID with risks from infertility leading to due to sepsis if left untreated. the pt stated that she will go to a different hospital that will treat her better . I asked if there was anything we could differently to continue her care and she stated no . she did not want to talk further and stood with her back toward me. she refused to sign AMA paperwork and left. Time Spent With Patient Time: Total time managing care of this patient today ____ minutes.
--- NOTE | 2024-05-05 01:31 | PC.NURSE ---
T/w called by [facility] as pt is refusing to have belongings searched and changed over at this time. Per EDTA, just prior to pt being asked, she was seen nodding off right after using the restroom for an extended amount of time. Guillermo with Security at bedside stated he has requested to help secure pts belongings and pt refused, got out of bed to sit next to her belongings at bedside. Upon my arrival to bedside pt sitting on chair with head down, awakes to verbal stimuli, and started taking dressing off of PIV stating she wanted to leave. T/w advised the reason for the search of her belongings, for safety and as protocol. Pt still stated she wanted to leave and go to a hospital where they wouldn't search her belongings. Dary BARAJAS called down to ED to speak with pt and risks of leaving/benefits of staying explained to pt. Pt refused to stay to sign AMA paperwork. Out of department in no acute distress, alert, with steady gait with mother.
--- NOTE | 2024-05-05 01:59 | PC.NURSE ---
Question of possible drug use in the restroom by staff Pt advised security would need to search belongings and pt refused. Pt requesting that her IV be taken out. KARL Foote called and came to speak with pt. Pt refusing to stay and standing by exit requesting to leave Pt educated by staff on implications and possible outcomes of leaving ama. Plan of care ongoing.
[2024-05-05 03:46] LABS: Syphilis Screen Nonreactive (Nonreactive)
[2024-05-05 08:52] LABS: Bacterial Vaginosis PCR POSITIVE (Negative); Candida Group PCR NOT DETECTED (Not Detect); Candida glab krusei PCR NOT DETECTED (Not Detect); Trichomonas vaginalis PCR DETECTED (Not Detect)
--- NOTE | 2024-05-10 01:31 | PM.DS ---
DS: Providers Provider Date of Service: 05/04/24 Date of admission: 05/04/24 22:00 Date of discharge: 05/04/24 Primary care physician: Unknown Physician Admitting clinician: Michel Mcclain Attending physician on admission: Michel Mcclain Attending physician on discharge: Michel Mcclain Discharging clinician: Michel Mcclain DS: Diagnosis Discharge Diagnosis (1) Sepsis: Status: Acute (2) Acute pelvic inflammatory disease: Status: Acute DS: Summary Hospital Course Hospital Course: admission history: Patient is a 18-year-old female with a past medical history significant for recent [facility], and recent treatment for Trichomonas on 03/19/2024, who presented to the ED due to lower abdominal pain, sore throat, oral lesions, vaginal lesions, and vaginal discharge for the past 3 days. She reports discharge is thin and green/yellow. She did have improvement with the treatment back in February for Trichomonas and reports that this is a new recurrence. She reports a new sexual partner and unprotected intercourse recently. She does have some dysuria but denies any hematuria. hospital course: transfer to [facility] was discussed by ED provider with [facility] provider, who declined transfer. they suggested admission for IV abx and discharge home with PO abx once fever resolves and labs improving. pt received ceftriaxone, doxycycyline and flagyl as well as 1L IVF. Per nursing pt was nodding off for unknown reason, so they asked to search her belongings. pt has a hx of ARLEEN and they were concerned for substance use in the hospital. she refused to allow them to search her belongings, and insisted she was leaving. I spoke with pt, who was not confused and was able to make sound medical decisions, and explained again the importance for her continued admission with sepsis and PID with risks from infertility leading to due to sepsis if left untreated. the pt stated that she will go to a different hospital that will treat her better . I asked if there was anything we could differently to continue her care and she stated no . she did not want to talk further and stood with her back toward me. she refused to sign AMA paperwork and left. PO patient left before PO abx could have been offered. Status at Discharge Functional status at discharge: independent ambulation Overall status at discharge: patient is progressing back to baseline Time Attestation Total time managing care of this patient today: 30 mintues. Discharge Coordination Time (in mins): 30 Quality: Safe Use of Opioids Does Pt have an Active Cancer Diagnosis on the Problem List?: No Quality: Stroke Does the patient have a stroke diagnosis?: No Physical Exam Vital Signs: Vital Signs: Last Vital Signs Temp 98.7 F 05/04/24 22:44 Pulse 78 05/04/24 22:44 Resp 16 05/04/24 22:44 BP 112/68 05/04/24 22:44 Pulse Ox 98 05/04/24 22:44 O2 Del Method Room Air 05/04/24 22:44 BMI result Body Mass Index 23.2 pt left AMA Discharge Plan Discharge Patient Disposition: Left Against Medical Advice Discharge Diagnosis: Sepsis, PID Referrals: Physician,Unknown J [Primary Care Provider] - 1 Week Discharge Medications: No Action methadone [Methadone Intensol] 10 mg/mL Concentrate 115 mg PO DAILY Discharge Orders: Discharge Order (Routine); Ordered 05/10/24 Ordered By: Dary Darnell Diet: Regular diet Activity on Discharge: No Restrictions Print Language: Upper Sorbian Care Plan Goals: recovery from sepsis/PID Health Concerns: sepsis/PID Plan of Treatment: pt left AMA, did receive IV abx, reported she was going to another hospital and walked out. Assessment: see above Discharge Date/Time: 05/05/24 07:32
== END 2024-05-05 07:32 | disposition left against medical advice (07) | DRG 872 ==
LOC: HO.ED 19:28 → HO.EDOVER 22:18
PROVIDERS: Physician Assistant; Registered Nurse Emergency; Admitting Provider Physician Assistant; Emergency Provider Emergency Medicine Emergency Medical Services; Visit Provider Hospitalist
DX: A41.9 Sepsis, unspecified organism (principal); F11.20 Opioid dependence, uncomplicated; N73.9 Female pelvic inflammatory disease, unspecified
CPT/HCPCS: 36415; 74177; 80053; 81001; 81515; 83605; 83690; 84702; 85025; 86780; 87040; 87086; 87255; 87491; 87591; 87651; 99285; J0696; J1836; Q9967

== ENCOUNTER → 2024-05-04 17:46 | Outpatient (BNV) | payer MEDICAID, SELFPAY | PROVIDERS: Emergency Provider Emergency Medicine Emergency Medical Services; Visit Provider Specialist | DX: K56.41 Fecal impaction (principal) | CPT/HCPCS: 74177 ==

== ENCOUNTER → 2024-05-04 22:00 | Outpatient (BNV) | payer SELFPAY | PROVIDERS: Admitting Provider Physician Assistant; Emergency Provider Emergency Medicine Emergency Medical Services; Visit Provider Physician Assistant | DX: A41.9 Sepsis, unspecified organism (principal); N73.0 Acute parametritis and pelvic cellulitis | CPT/HCPCS: 99222; 99499 ==